=== PATIENT | female | born 1945 | race Caucasian/White ===

== ENCOUNTER 2018-08-04 19:43 | Emergency (ER) | payer OTHER ==
[2018-08-04 21:55] LABS: PLATELET COUNT 220 x10^3mcL (130-400); RED CELL DISTRIBUTION WIDTH 12.9 % (11.5-14.5)
[2018-08-04 22:06] LABS: CALCIUM 9.7 mg/dL (8.5-10.1); CARBON DIOXIDE 28.6 mmol/L (21-32); CHLORIDE SERUM 103 mmol/L (98-107); CREATININE SERUM 1.1 mg/dL (0.6-1.0); GLUCOSE SERUM 132 mg/dL (74-106); POTASSIUM SERUM 3.7 mmol/L (3.5-5.1); SODIUM SERUM 140 mmol/L (136-145)
[2018-08-04 22:11] LABS: ALBUMIN 4.1 g/dL (3.4-5.0); ALKALINE PHOSPHATASE 79 U/L (46-116); ALT/SGPT 31 U/L (14-59); AMYLASE 85 U/L (25-115); AST/SGOT 24 U/L (15-37); BILIRUBIN TOTAL 0.74 mg/dL (0.20-1.00); LIPASE 174 IU/L (73-393); MAGNESIUM 2.1 mg/dL (1.8-2.4); TOTAL PROTEIN, SERUM 7.7 g/dL (6.4-8.2)
[2018-08-04 23:13] VITALS: BP 148/77
== END 2018-08-04 23:13 | disposition home or self-care (01) ==
LOC: ED 19:43
PROVIDERS: Emergency Medicine
DX: K21.9 Gastro-esophageal reflux disease without esophagitis (principal); E03.9 Hypothyroidism, unspecified
CPT/HCPCS: C9113; J2405; J7030

== ENCOUNTER 2020-05-25 12:45 | Emergency (ER) | payer OTHER ==
[~2020-05-25] VITALS: Ht 157.5 cm; Wt 59.9 kg
[2020-05-25 13:04] VITALS: Ht 157.5 cm; Wt 59.9 kg
[2020-05-25 13:25] LABS: BASOPHIL % 0.5 % (0-2); PLATELET COUNT 220 x10^3mcL (130-400)
[2020-05-25 13:43] LABS: CARBON DIOXIDE 29.5 mmol/L (21-32); CHLORIDE SERUM 105 mmol/L (98-107); CREATININE SERUM 0.8 mg/dL (0.6-1.0); GLUCOSE SERUM 101 mg/dL (74-106); POTASSIUM SERUM 3.9 mmol/L (3.5-5.1); SODIUM SERUM 142 mmol/L (136-145)
[2020-05-25 13:47] LABS: ALBUMIN 4.4 g/dL (3.4-5.0); ALKALINE PHOSPHATASE 100 U/L (46-116); ALT/SGPT 56 U/L (14-59); AST/SGOT 33 U/L (15-37); BILIRUBIN TOTAL 1.1 mg/dL (0.20-1.00); LIPASE 184 IU/L (73-393)
[2020-05-25 13:51] LABS: TOTAL PROTEIN, SERUM 8.3 g/dL (6.4-8.2)
[2020-05-25 15:09] LABS: UA SPECIFIC GRAVITY >=1.030 (1.005-1.035); microscopic required? YES; urine erythrocyte TRACE (NEGATIVE)
[2020-05-25 16:01] VITALS: BP 100/50
== END 2020-05-25 16:01 | disposition home or self-care (01) ==
LOC: ED 12:45
PROVIDERS: Emergency Medicine
DX: R10.816 Epigastric abdominal tenderness (principal); E03.9 Hypothyroidism, unspecified; E78.00 Pure hypercholesterolemia, unspecified; Z90.711 Acquired absence of uterus with remaining cervical stump; Z98.890 Other specified postprocedural states; Z90.89 Acquired absence of other organs; Z90.49 Acquired absence of other specified parts of digestive tract
CPT/HCPCS: Q0092